=== PATIENT | male | born 1970 | race Caucasian/White ===

== ENCOUNTER 2020-08-19 11:09 | Outpatient (REF) | payer OTHER, SELFPAY ==
[2020-08-23 22:08] LABS: COVID-19 RT-PCR Result NEGATIVE (Negative)
== END 2020-08-19 11:29 ==
LOC: NCHCN 11:09
PROVIDERS: Visit Provider Internal Medicine
DX: Z20.828 Contact with and (suspected) exposure to other viral communicable diseases (principal)
CPT/HCPCS: U0003